=== PATIENT | male | born 1995 | race Caucasian/White ===

== ENCOUNTER 2022-07-14 18:26 | Emergency (ER) | payer MEDICAID ==
[~2022-07-14] VITALS: Ht 161 cm; Wt 92.2 kg
[2022-07-14 19:09] VITALS: BP 138/70
--- NOTE | 2022-07-14 19:16 | NUR ---
PT AMB TO BED 1.
--- NOTE | 2022-07-14 20:00 | NUR ---
MD Lee at bedside examining pt.
[2022-07-14] MEDS ORDERED: ONDANSETRON 4 MG/2 ML VIAL IVP ONE (20:15)
[2022-07-14] MEDS ORDERED: NACL 0.9% 1,000 ML IV ONE (20:15)
[2022-07-14] MEDS ORDERED: ACETAMINOPHEN 325 MG TAB PO ONE (20:15)
[2022-07-14] MEDS ORDERED: MORPHINE SULFATE 4 MG/ML SYR IVP ONE (20:15)
[2022-07-14 20:47] LABS: BASOPHILS % (AUTO) 0.2 % (0.0-2.0); EOSINOPHILS # (AUTO) 0.1 K/uL (0-0.4); EOSINOPHILS % (AUTO) 0.4 % (0.0-4.0); HEMATOCRIT 47.1 % (36-52); HEMOGLOBIN 15.6 g/dL (12.0-18.0); LYMPHOCYTES # (AUTO) 1.4 K/uL (2.0-11.5); LYMPHOCYTES % (AUTO) 9.1 % (20.5-51.1); MEAN CORPUSCULAR HEMOGLOBIN 28 pg (27-31); MEAN CORPUSCULAR HGB CONC 33 g/dL (33-37); MEAN CORPUSCULAR VOLUME 83.8 fL (80-94); MONOCYTES # (AUTO) 0.8 K/uL (0.8-1.0); MONOCYTES % (AUTO) 5.5 % (1.7-9.3); NEUTROPHILS # (AUTO) 12.7 K/uL (1.8-7.7); NEUTROPHILS % (AUTO) 84.8 % (42.2-75.2); PLATELET COUNT (AUTO) 338 K/uL (140-450); RED BLOOD CELL COUNT(AUTO) 5.61 MIL/uL (4.20-6.10); RED CELL DISTRIBUTION WIDTH 13.7 % (11.6-13.7)
[2022-07-14 20:52] LABS: APPEARANCE,URINE CLEAR (CLEAR); BILIRUBIN,URINE NEGATIVE (NEGATIVE); BLOOD, URINE 2+ (NEGATIVE); COLOR,URINE YELLOW (YELLOW); LEUKOCYTE ESTERASE ,URINE NEGATIVE (NEGATIVE); NITRITE, URINE NEGATIVE (NEGATIVE); UGLUCOSE NEGATIVE (NEGATIVE)
[2022-07-14 20:56] LABS: ANION GAP 13.9 (8-16); CARBON DIOXIDE 26.9 mmol/L (21-32); POTASSIUM 3.8 mmol/L (3.5-5.1)
[2022-07-14 21:06] LABS: WBC,URINE 0-5 /HPF (0-5)
[2022-07-14 21:11] LABS: ALBUMIN 4.3 g/dL (3.4-5.0); TOTAL BILIRUBIN 0.7 mg/dL (0.0-1.0)
--- NOTE | 2022-07-14 21:51 | NUR ---
Pt taken to CT for imaging.
--- NOTE | 2022-07-14 22:03 | NUR ---
PT RETURN FROM CT
[2022-07-14] MEDS ORDERED: AMOXIL/CLAVULANATE 875/125 MG 1 TAB PO ONE (23:45)
[2022-07-14] MEDS ORDERED: ACET-5629 PO (23:47)
[2022-07-14] MEDS ORDERED: ONDA-188 PO (23:47)
[2022-07-14] MEDS ORDERED: NAPR-54 PO (23:47)
[2022-07-14] MEDS ORDERED: AMOX1TAB8 PO (23:47)
[2022-07-15 00:15] VITALS: BP 103/56
--- NOTE | 2022-07-15 00:15 | NUR ---
Patient discharged with v/s stable. Written and verbal after care instructions given and explained. Patient alert, oriented and verbalized understanding of instructions. Ambulatory with steady gait. All questions addressed prior to discharge. ID band removed. Patient advised to follow up with PMD. Rx of Naproxen, Zofran, Amox-clav and Percocet given. Patient educated on indication of medication including possible reaction and side effects. Opportunity to ask questions provided and answered.
== END 2022-07-15 00:15 | disposition home or self-care (01) ==
LOC: MED 18:26
DX: R10.31 Right lower quadrant pain (principal); R10.13 Epigastric pain; R50.9 Fever, unspecified; Z98.890 Other specified postprocedural states
CPT/HCPCS: 36415; 74177; 80053; 81001; 83690; 85025; 86886; 86900; 86901; 87040; 93005; 96361; 96374; 96375; 99285; J2270; J2405; J7030; Q9967

== ENCOUNTER 2022-08-10 14:11 | Emergency (ER) | payer MEDICAID ==
[~2022-08-10] VITALS: Ht 175.3 cm; Wt 90.7 kg
[~2022-08-10 14:11] MED LIST: ACET-5629 PO; AMOX1TAB8 PO; NAPR-54 PO; ONDA-188 PO
[2022-08-10 14:49] VITALS: BP 123/92
[2022-08-10] MEDS ORDERED: KETOROLAC 15 MG/ML VIAL IVP ONE (16:20)
[2022-08-10 16:36] LABS: BASOPHILS # (AUTO) 0.1 K/uL (0.00-0.22); BASOPHILS % (AUTO) 0.5 % (0.0-2.0); EOSINOPHILS # (AUTO) 0.5 K/uL (0-0.4); EOSINOPHILS % (AUTO) 4.6 % (0.0-4.0); HEMATOCRIT 47.7 % (36-52); LYMPHOCYTES # (AUTO) 3.3 K/uL (2.0-11.5); LYMPHOCYTES % (AUTO) 30.6 % (20.5-51.1); MEAN CORPUSCULAR HEMOGLOBIN 28 pg (27-31); MEAN CORPUSCULAR HGB CONC 34 g/dL (33-37); MONOCYTES # (AUTO) 0.9 K/uL (0.8-1.0); MONOCYTES % (AUTO) 8.6 % (1.7-9.3); NEUTROPHILS # (AUTO) 6.1 K/uL (1.8-7.7); NEUTROPHILS % (AUTO) 55.7 % (42.2-75.2); PLATELET COUNT (AUTO) 350 K/uL (140-450); RED BLOOD CELL COUNT(AUTO) 5.68 MIL/uL (4.20-6.10); RED CELL DISTRIBUTION WIDTH 14.4 % (11.6-13.7); WHITE BLOOD COUNT (AUTO) 10.9 K/uL (4.8-10.8)
[2022-08-10 16:53] LABS: ALBUMIN 4.6 g/dL (3.4-5.0); CARBON DIOXIDE 30.8 mmol/L (21-32); POTASSIUM 4.8 mmol/L (3.5-5.1); TOTAL BILIRUBIN 0.4 mg/dL (0.0-1.0)
[2022-08-10] MEDS ORDERED: KETOROLAC 15 MG/ML VIAL ONE (18:08)
[2022-08-10] MEDS ORDERED: BEN10 PO (20:25)
[2022-08-10 22:06] VITALS: BP 129/85
--- NOTE | 2022-08-10 22:06 | NUR ---
Patient discharged with v/s stable. Written and verbal after care instructions given and explained. Patient alert, oriented and verbalized understanding of instructions. All questions addressed prior to discharge. ID band removed. Patient advised to follow up with PMD. Rx of Bentyl sent to preferred pharmacy. Patient educated on indication of medication including possible reaction and side effects. Opportunity to ask questions provided and answered.
== END 2022-08-10 22:06 | disposition home or self-care (01) ==
LOC: MED 14:11
DX: R10.31 Right lower quadrant pain (principal); Z79.899 Other long term (current) drug therapy; Z79.1 Long term (current) use of non-steroidal anti-inflammatories (NSAID); Z79.2 Long term (current) use of antibiotics
CPT/HCPCS: 36415; 74177; 80053; 83690; 85025; 96374; 99285; J1885; Q9967

== ENCOUNTER 2022-12-24 17:49 | Emergency (ER) | payer MEDICAID, OTHER ==
[~2022-12-24] VITALS: Ht 172.7 cm; Wt 72.6 kg
[~2022-12-24 17:49] MED LIST changes: +BEN10 PO
[2022-12-24 18:05] VITALS: BP 135/86; PULSE 90; RESP 18; TEMP 98.9; O2SAT 98
[2022-12-24 21:38] LABS: BASOPHILS # (AUTO) 0.1 K/uL (0.00-0.22); BASOPHILS % (AUTO) 0.5 % (0.0-2.0); EOSINOPHILS # (AUTO) 0.3 K/uL (0-0.4); HEMATOCRIT 45.7 % (36-52); HEMOGLOBIN 14.9 g/dL (12.0-18.0); LYMPHOCYTES # (AUTO) 4.2 K/uL (2.0-11.5); LYMPHOCYTES % (AUTO) 39.2 % (20.5-51.1); MEAN CORPUSCULAR HEMOGLOBIN 27 pg (27-31); MEAN CORPUSCULAR HGB CONC 33 g/dL (33-37); MEAN CORPUSCULAR VOLUME 84.2 fL (80-94); MONOCYTES # (AUTO) 0.9 K/uL (0.8-1.0); MONOCYTES % (AUTO) 8.8 % (1.7-9.3); NEUTROPHILS # (AUTO) 5.2 K/uL (1.8-7.7); NEUTROPHILS % (AUTO) 48.5 % (42.2-75.2); PLATELET COUNT (AUTO) 347 K/uL (140-450); RED BLOOD CELL COUNT(AUTO) 5.42 MIL/uL (4.20-6.10); RED CELL DISTRIBUTION WIDTH 14.2 % (11.6-13.7); WHITE BLOOD COUNT (AUTO) 10.7 K/uL (4.8-10.8)
[2022-12-24 21:51] LABS: ALBUMIN 4.4 g/dL (3.4-5.0); ANION GAP 14.9 (8-16); CARBON DIOXIDE 27.8 mmol/L (21-32); POTASSIUM 4.7 mmol/L (3.5-5.1); TOTAL BILIRUBIN 0.3 mg/dL (0.0-1.0); TOTAL PROTEIN, SERUM 9.1 g/dL (6.4-8.2)
[2022-12-25] MEDS ORDERED: KETOROLAC 30 MG/ML VIAL IM ONE (02:05)
[2022-12-25] MEDS ORDERED: IBUP-2213 PO (03:28)
[2022-12-25 03:55] VITALS: BP 111/59; PULSE 90; RESP 18; TEMP 98.9; O2SAT 98
== END 2022-12-25 03:55 | disposition home or self-care (01) ==
LOC: MED 17:49
DX: K80.50 Calculus of bile duct without cholangitis or cholecystitis without obstruction (principal); K76.0 Fatty (change of) liver, not elsewhere classified; Z79.899 Other long term (current) drug therapy
CPT/HCPCS: 36415; 76705; 80053; 83690; 85025; 96372; 99285; J1885; Q0092